=== PATIENT | female | born 2000 | race Caucasian/White ===

== ENCOUNTER 2020-10-09 10:44 | Observation (INO) | payer MEDICAID ==
[~2020-10-09] VITALS: Ht 162.6 cm; Wt 104.8 kg
[2020-10-09] MEDS ORDERED: PRETAB PO (11:21)
[2020-10-09 11:58] VITALS: BP 110/56
== END 2020-10-09 13:25 | disposition home or self-care (01) ==
LOC: MLD 10:44
PROVIDERS: ADMIT Obstetrics & Gynecology; ATTEND Obstetrics & Gynecology
DX: O26.893 Other specified pregnancy related conditions, third trimester (principal); R10.9 Unspecified abdominal pain; Z20.822 Contact with and (suspected) exposure to COVID-19; Z3A.38 38 weeks gestation of pregnancy
CPT/HCPCS: 59025; 76805; 81000; G0378; U0003

== ENCOUNTER 2020-10-11 10:12 | Observation (INO) | payer MEDICAID ==
[~2020-10-11] VITALS: Ht 162.6 cm; Wt 106.6 kg
[~2020-10-11 10:12] MED LIST: PRETAB PO
[2020-10-11 11:23] VITALS: BP 120/86
[2020-10-11] MEDS ORDERED: TRA200 PO (11:29)
[2020-10-11] MEDS ORDERED: MISOPROSTOL 25 MCG TAB ONE (13:48)
== END 2020-10-11 15:22 | disposition home or self-care (01) ==
LOC: INTOOBSV 10:12 → MLD 10:12 → OBSVTOIN 11:07 → INTOOBSV 11:07
PROVIDERS: ADMIT Obstetrics & Gynecology; ATTEND Obstetrics & Gynecology
DX: O41.03X0 Oligohydramnios, third trimester, not applicable or unspecified (principal); Z3A.38 38 weeks gestation of pregnancy
CPT/HCPCS: 59025; 76815; 81000; G0378